=== PATIENT | female | born 1975 | race Caucasian/White ===

== ENCOUNTER 2021-08-01 12:28 | Emergency (ER) | payer BC ==
--- NOTE | 2021-08-01 12:43 | ERPHSYRPT ---
- History of Present Illness Time Seen by Provider: 08/01/21 12:42 Source: patient Exam Limitations: no limitations Patient Subjective Stated Complaint: pt sent over from [facility] for low heart rate, she was dx with UTI and when they did her v/s her hr was 30-40 Triage Nursing Assessment: pt alert, walked in. resp easy, face mask in place, skin w/d/p no edema noted Physician History: This is a 45-year-old thin female who was sent to our emergency department from primary care provider's office secondary to a low heart rate that they found on examination at the office today. Patient was there at the office and was di agnosed with a urinary tract infection and a Keflex prescription was sent to the patient's pharmacy. The patient is sent to us for evaluation of her bradycardia. Her heart rate was measured 30 to 40 bpm. Patient was not dizzy. She denies chest pain. She does not recall having any of those symptoms. However, she has seen Dr. Garcia, a claim agent out of [facility] and was placed on metoprolol in September 2020. She does not have an appointment with him until October 2021. Patient states that she is not dizzy. She is asymptomatic. Timing/Duration: today Activities at Onset: none Severity of Pain-Max: none Severity of Pain-Current: none Modifying Factors: Improves With: nothing Nitro Today/Relief: no nitro taken today Aspirin Treatment Today: no aspirin today Associated Symptoms: denies symptoms Prior Chest Pain/Cardiac Workup: no prior chest pain Allergies/Adverse Reactions: sulfamethoxazole [From Bactrim] Adverse Reaction (Verified 08/01/21 12:41) trimethoprim [From Bactrim] Adverse Reaction (Verified 08/01/21 12:41) Home Medications: Metoprolol Tartrate 25 mg [Lopressor 25MG Tab] 6.25 mg BID 08/01/21 [History] Hx Tetanus, Diphtheria Vaccination/Date Given: No Hx Influenza Vaccination/Date Given: No Hx Pneumococcal Vaccination/Date Given: No Immunizations Up to Date: Yes Travel Risk - International Travel Have you traveled outside of the country in past 3 weeks: No - Coronavirus Screening Are you exhibiting any of the following symptoms?: No Close contact with a COVID-19 positive Pt in past 14-21 Days: No - Vaccine Status Have you recieved a Covid-19 vaccination: Yes 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: [employer] - Vaccination Dates Date of 2cond Vaccination (if applicable): 2020 - Review of Systems Constitutional: No Symptoms Eyes: No Symptoms Ears, Nose, & Throat: No Symptoms Respiratory: No Symptoms Cardiac: No Symptoms Abdominal/Gastrointestinal: No Symptoms Genitourinary Symptoms: No Symptoms Musculoskeletal: No Symptoms Skin: No Symptoms Neurological: No Symptoms Psychological: No Symptoms Endocrine: No Symptoms Hematologic/Lymphatic: No Symptoms Immunological/Allergic: No Symptoms All Other Systems: Reviewed and Negative - Past Medical History Pertinent Past Medical History: Yes - Past Surgical History Past Surgical History: Yes - Social History Smoking Status: Never smoker Exposure to second hand smoke: No Patient Lives Alone: Yes - Female History Hx Last Menstrual Period: 07/23/2020 Hx Now: No - Nursing Vital Signs Nursing Vital Signs: Initial Vital Signs Temperature 97 F 08/01/21 12:36 Pulse Rate 59 L 08/01/21 12:36 Respiratory Rate 16 08/01/21 12:36 Blood Pressure 138/81 08/01/21 12:36 O2 Sat by Pulse Oximetry 98 08/01/21 12:36 Pain Scale Pain Intensity 0 - Physical Exam General Appearance: no apparent distress, alert, thin Eye Exam: PERRL/EOMI, eyes nml inspection Ears, Nose, Throat Exam: normal ENT inspection, moist mucous membranes Neck Exam: normal inspection, non-tender, supple, full range of motion Respiratory Exam: normal breath sounds, lungs clear, airway intact, No chest tenderness, No respiratory distress Cardiovascular Exam: regular rate/rhythm, normal heart sounds, normal peripheral pulses Gastrointestinal/Abdomen Exam: soft, normal bowel sounds, No tenderness Pelvic Exam: not done Rectal Exam: not done Back Exam: normal inspection Extremity Exam: normal inspection, normal range of motion, pelvis stable Neurologic Exam: alert, oriented x 3, cooperative, 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-XII nml as tested, normal mood/affect, nml cerebellar function, nml station & gait, sensation nml Skin Exam: normal color, warm, dry Lymphatic Exam: No adenopathy SpO2 Interpretation: normal SpO2: 98 O2 Delivery: Room Air - Course Nursing assessment & vital signs reviewed: Yes EKG Interpreted by Me: RATE (65), Sinus Rhythm, NORMAL AXIS, Non-specific ST Changes, Other (Ventricular bigeminy.) Ordered Tests: Active Orders 24 hr Category Date Time Status 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 STAT Care 08/01/21 13:02 Active EKG-ER Only STAT Care 08/01/21 13:02 Active IV Insertion STAT Care 08/01/21 13:02 Active CBC W DIFF Stat Lab 08/01/21 13:23 Completed CMP Stat Lab 08/01/21 13:23 Completed D-DIMER QUANTITATIVE Stat Lab 08/01/21 13:23 Received MAGNESIUM Stat Lab 08/01/21 13:23 Completed NT PRO BNP Stat Lab 08/01/21 13:23 Completed TROPONIN Q3H Lab 08/01/21 13:23 Completed TROPONIN Q3H Lab 08/01/21 16:15 Ordered TROPONIN Q3H Lab 08/01/21 19:15 Ordered TROPONIN Q3H Lab 08/01/21 22:15 Ordered TROPONIN Q3H Lab 08/02/21 01:15 Ordered Medication Summary Generic Name Dose Route Start Last Admin Trade Name Freq PRN Reason Stop Dose Admin Sodium Chloride 500 mls @ 50 mls/hr 08/01/21 13:15 08/01/21 13:38 Sodium Chloride 0.9% 500 Ml IV 08/31/21 13:14 50 mls/hr .Q10H CATE Administration Discontinued Medications Generic Name Dose Route Start Last Admin Trade Name Freq PRN Reason Stop Dose Admin Ceftriaxone Sodium/Dextrose 1 g in 50 mls @ 100 mls/hr 08/01/21 13:17 08/01/21 14:17 Rocephin 1 Gm-D5w 50 Ml Bag IV 08/01/21 13:46 Infused STAT STA Infusion Ceftriaxone Sodium/Dextrose Confirm 08/01/21 13:35 Rocephin 1 Gm-D5w 50 Ml Bag Administered 08/01/21 13:36 Dose 1 g in 50 mls @ ud IV .[employer] [facility] Lab/Rad Data: Laboratory Result Diagrams 08/01/21 13:23 08/01/21 13:23 Laboratory Results 08/01/21 08/01/21 08/01/21 Range/Units 13:23 13:23 13:23 WBC 6.0 (4.0-10.5) x10^3/uL RBC 4.39 (4.1-5.4) x10^6/uL Hgb 12.4 (12.0-16.0) g/dL Hct 40.0 (35-47) % MCV 91.1 (78-100) fL MCH 28.2 (26-32) pg MCHC 31.0 L (32-36) g/dL RDW 18.0 H (11.5-14.0) % Plt Count 186 (150-450) x10^3/uL MPV 10.8 (7.5-11.0) fL Gran % 61.0 (36.0-66.0) % Immature Gran % (Auto) 0.2 (0.00-0.4) % Nucleat RBC Rel Count 0.0 (0.00-0.1) % Eos # (Auto) 0.05 (0-0.5) x10^3/uL Immature Gran # (Auto) 0.01 (0.00-0.03) x10^3u/L Absolute Lymphs (auto) 1.76 (1.0-4.6) x10^3/uL Absolute Monos (auto) 0.49 (0.0-1.3) x10^3/uL Absolute Nucleated RBC 0.00 (0.00-0.01) x10^3u/L Lymphocytes % 29.3 (24.0-44.0) % Monocytes % 8.2 (0.0-12.0) % Eosinophils % 0.8 (0.00-5.0) % Basophils % 0.5 (0.0-0.4) % Absolute Granulocytes 3.67 (1.4-6.9) x10^3/uL Basophils # 0.03 (0-0.4) x10^3/uL Sodium 139 (137-145) mmol/L Potassium 4.0 (3.5-5.1) mmol/L Chloride 104 (98-107) mmol/L Carbon Dioxide 27 (22-30) mmol/L Anion Gap 11.5 (5-15) MEQ/L BUN 13 (7-17) mg/dL Creatinine 0.75 (0.52-1.04) mg/dL Estimated GFR > 60.0 ML/MIN Glucose 89 (74-106) mg/dL Calcium 9.2 (8.4-10.2) mg/dL Magnesium 2.0 (1.6-2.3) mg/dL Total Bilirubin 0.40 (0.2-1.3) mg/dL AST 31 (14-36) U/L ALT 19 (0-35) U/L Alkaline Phosphatase 70 (38-126) U/L Troponin I < 0.012 (0.000-0.034) ng/mL NT-Pro-B Natriuret Pep 98.0 (0-450) pg/mL Serum Total Protein 7.5 (6.3-8.2) g/dL Albumin 4.2 (3.5-5.0) g/dL - Progress Progress: improved, re-examined Air Movement: good Blood Culture(s) Obtained: No Antibiotics given: No Counseled pt/family regarding: lab results, diagnosis, need for follow-up - Departure Departure Disposition: Home Clinical Impression: Bradycardia Condition: Stable Critical Care Time: No Additional Instructions: Follow-up with Dr. Garcia, your claim agent this 08/03/2021 at 1:45 PM at the [place] office. Continue your medication as prescribed. Continue your antibiotics that your primary care provider called in for your urinary tract infection.
[2021-08-01] MEDS ORDERED: Sodium Chloride 0.9% 500 ML 500 ML IV SCH (13:15)
[2021-08-01] MEDS ORDERED: ROCEPHIN 1 Gm-D5w 50 ml Bag** 1 G/50 ML IVPB IV STA (13:17)
[2021-08-01 13:25] LABS: Absolute Neutrophil Ct (ANC) 3.67 x10^3/uL (1.4-6.9); Basophil (Absolute #) 0.03 x10^3/uL (0-0.4); Eosinophil % 0.8 % (0.00-5.0); Eosinophil (Absolute #) 0.05 x10^3/uL (0-0.5); Hemoglobin 12.4 g/dL (12.0-16.0); Lymphocyte (Absolute #) 1.76 x10^3/uL (1.0-4.6); Lymphocytes % 29.3 % (24.0-44.0); Mean Cell Volume 91.1 fL (78-100); Mean Corpuscular Hemoglobin 28.2 pg (26-32); Mean Platelet Volume 10.8 fL (7.5-11.0); Monocyte (Absolute #) 0.49 x10^3/uL (0.0-1.3); Monocytes % 8.2 % (0.0-12.0); Platelet Count 186 x10^3/uL (150-450); Red Blood Count 4.39 x10^6/uL (4.1-5.4)
[2021-08-01] MEDS ORDERED: ROCEPHIN 1 Gm-D5w 50 ml Bag** 1 G/50 ML IVPB IV ONE (13:35)
[2021-08-01] MEDS ORDERED: Sodium Chloride 0.9% 500 ML 500 ML IV ONE (13:36)
[2021-08-01 13:48] LABS: ALBUMIN 4.2 g/dL (3.5-5.0); ALKALINE PHOSPHATASE 70 U/L (38-126); ANION GAP 11.5 MEQ/L (5-15); BLOOD UREA NITROGEN 13 mg/dL (7-17); CHLORIDE 104 mmol/L (98-107); Calcium 9.2 mg/dL (8.4-10.2); Carbon Dioxide 27 mmol/L (22-30); Creatinine 1 0.75 mg/dL (0.52-1.04); EST GLOMERULAR FILTRATION RATE > 60.0 ML/MIN; Glucose 89 mg/dL (74-106); SGOT/AST 31 U/L (14-36); SGPT/ALT 19 U/L (0-35); SODIUM 139 mmol/L (137-145); Total Protein 7.5 g/dL (6.3-8.2)
[2021-08-01 14:49] VITALS: O2SAT 100
[2021-08-01 15:32] VITALS: BP 112/73; PULSE 60
== END 2021-08-01 15:37 | disposition home or self-care (01) ==
LOC: ED 12:28
DX: R00.1 Bradycardia, unspecified (principal); N39.0 Urinary tract infection, site not specified; Z79.899 Other long term (current) drug therapy
CPT/HCPCS: 36000; 36415; 80053; 83735; 83880; 84484; 85025; 85379; 93005; 93041; 96365; 99284; J0696